=== PATIENT | female | born 1975 | race American Indian/Alaskan Native ===

== ENCOUNTER 2017-02-15 18:07 | Emergency (ER) | payer OTHER ==
[2017-02-15 19:05] LABS: Basophils % (Auto) 0.5 % (0.0-1.8); Eosinophils % (Auto) 1.9 % (0.0-4.3); Hematocrit 37.5 % (30.3-42.9); Hemoglobin 12.4 gm/dl (10.1-14.3); Mean Corpuscular HGB Conc 33 % (30-34); Mean Corpuscular Hemoglobin 30 pg (28-32); Mean Corpuscular Volume 91 fl (79-97); Platelet Count 256 K/mm3 (140-440); Red Blood Count 4.12 M/mm3 (3.65-5.03); Red Cell Distribution Width 14.4 % (13.2-15.2); White Blood Count 6.4 K/mm3 (4.5-11.0)
[2017-02-15 19:06] LABS: Anion Gap 20 mmol/L; Blood Urea Nitrogen 15 mg/dL (7-17); Carbon Dioxide 26 mmol/L (22-30); Chloride 95.3 mmol/L (98-107); Glucose 224 mg/dL (65-100); Potassium 3.3 mmol/L (3.6-5.0); Sodium 138 mmol/L (137-145)
[2017-02-15] MEDS ORDERED: TYLENOL ONE (20:50)
[2017-02-15] MEDS ORDERED: CATAPRES ONE (20:50)
[2017-02-15] MEDS ORDERED: TYLENOL PO ONE (21:13)
[2017-02-15] MEDS ORDERED: CATAPRES PO ONE (21:13)
[2017-02-16 00:03] VITALS: BP 155/95
--- NOTE | 2017-02-16 00:28 | Emergency Department Report ---
ED General Adult HPI - General Chief complaint: High BP Stated complaint: HBP Time Seen by Provider: 02/15/17 23:52 Source: patient Mode of arrival: Ambulatory Limitations: No Limitations - History of Present Illness MD Complaint: hypertension -: Gradual Location: head Radiation: non-radiation Severity scale (0 -10): 4 Improves with: none Associated Symptoms: headaches. denies: confusion, chest pain, cough, diaphoresis, fever/chills, loss of appetite, malaise, nausea/vomiting, rash, seizure, shortness of breath, syncope Treatments Prior to Arrival: none - Related Data Home Medications Medication Instructions Recorded Confirmed Last Taken Acetaminophen/Dp-Hydramine 1 each PO DAILY PRN 04/09/15 04/09/15 Unknown [[facility] Pm Powder Packet] EPINEPHrine (NF) [Epipen (Nf)] 0.3 mg SQ QDAY PRN 04/09/15 04/09/15 Unknown diphenhydrAMINE [Benadryl CAP] 25 mg PO Q6H PRN 04/09/15 04/09/15 Unknown Previous Rx's Medication Instructions Recorded Last Taken Type Acetaminophen/Codeine [Tylenol #3] 1 tab PO Q6H PRN #20 tab 04/09/15 Unknown Rx Hydrochlorothiazide [HCTZ] 25 mg PO QDAY #30 tablet 02/16/17 Unknown Rx Lisinopril [Zestril TAB] 20 mg PO QDAY #60 tablet 02/16/17 Unknown Rx Allergies Allergy/AdvReac Type Severity Reaction Status Date / Time house dust Allergy Unknown Verified 02/15/17 18:23 mold Allergy Unknown Uncoded 02/15/17 18:23 ED Review of Systems ROS: Stated complaint: HBP Other details as noted in HPI Comment: All other systems reviewed and negative ED Past Medical Hx - Past Medical History Previous Medical History?: Yes Hx Hypertension: Yes Additional medical history: bronchitis. tonsilitis - Surgical History Past Surgical History?: Yes Additional Surgical History: . tubes tied - Social History Smoking Status: Current Every Day Smoker Substance Use Type: None - Medications Home Medications: Home Medications Medication Instructions Recorded Confirmed Last Taken Type Acetaminophen/Codeine [Tylenol #3] 1 tab PO Q6H PRN #20 tab 04/09/15 Unknown Rx Acetaminophen/Dp-Hydramine 1 each PO DAILY PRN 04/09/15 04/09/15 Unknown History [[facility] Pm Powder Packet] EPINEPHrine (NF) [Epipen (Nf)] 0.3 mg SQ QDAY PRN 04/09/15 04/09/15 Unknown History diphenhydrAMINE [Benadryl CAP] 25 mg PO Q6H PRN 04/09/15 04/09/15 Unknown History Hydrochlorothiazide [HCTZ] 25 mg PO QDAY #30 tablet 02/16/17 Unknown Rx Lisinopril [Zestril TAB] 20 mg PO QDAY #60 tablet 02/16/17 Unknown Rx ED Physical Exam - General Limitations: No Limitations General appearance: alert, in no apparent distress - Head Head exam: Present: atraumatic, normocephalic - Eye Eye exam: Present: normal appearance, PERRL, EOMI - ENT ENT exam: Present: normal exam, normal orophraynx, mucous membranes moist - Neck Neck exam: Present: normal inspection - Respiratory Respiratory exam: Present: normal lung sounds bilaterally. Absent: respiratory distress - Cardiovascular Cardiovascular Exam: Present: regular rate, normal rhythm. Absent: systolic murmur, diastolic murmur, rubs, gallop - GI/Abdominal GI/Abdominal exam: Present: soft, normal bowel sounds - Extremities Exam Extremities exam: Present: normal inspection - Back Exam Back exam: Present: normal inspection - Neurological Exam Neurological exam: Present: alert, oriented X3 - Psychiatric Psychiatric exam: Present: normal affect, normal mood - Skin Skin exam: Present: warm, dry, intact, normal color. Absent: rash ED Course Vital Signs 02/15/17 02/15/17 02/15/17 18:24 20:46 20:51 Temperature 98.3 F Pulse Rate 94 H 92 H Respiratory 18 18 Rate Blood Pressure 177/112 191/129 Blood Pressure 191/129 [Right] O2 Sat by Pulse 97 100 Oximetry 02/15/17 02/15/17 02/15/17 21:48 23:54 23:55 Temperature 97.4 F L Pulse Rate 80 77 76 Respiratory 18 15 17 Rate Blood Pressure 155/95 Blood Pressure 163/112 [Right] O2 Sat by Pulse 97 Oximetry 02/16/17 02/16/17 00:03 00:04 Temperature 98.6 F Pulse Rate Respiratory 18 Rate Blood Pressure Blood Pressure [Right] O2 Sat by Pulse 100 Oximetry ED Medical Decision Making - Lab Data Result diagrams: 02/15/17 18:37 02/15/17 18:37 - EKG Data Interpretation: no acute changes - Medical Decision Making BP better controlled here in the ER after her PCP gave her clonidine. labs negative. will start her on bp medication,. dc and follow up Critical care attestation.: If time is entered above; I have spent that time in minutes in the direct care of this critically ill patient, excluding procedure time. ED Disposition Clinical Impression: Hypertension Disposition: DC-01 TO HOME OR SELFCARE Is pt being admited?: No Does the pt Need Aspirin: No Condition: Good Instructions: Hypertension (ED) Prescriptions: Hydrochlorothiazide [HCTZ] 25 mg PO QDAY #30 tablet Lisinopril [Zestril TAB] 20 mg PO QDAY #60 tablet Referrals: PRIMARY CARE, [Primary Care Provider] - 3-5 Days Forms: Work/School Release Form(ED) Time of Disposition: 00:27
== END 2017-02-16 00:40 | disposition home or self-care (01) ==
LOC: ED 18:07
DX: I10 Essential (primary) hypertension (principal); F17.200 Nicotine dependence, unspecified, uncomplicated; Z91.09 Other allergy status, other than to drugs and biological substances
CPT/HCPCS: 36415; 80048; 84484; 85025; 93005; 93010; 99284